=== PATIENT | male | born 1950 | race Caucasian/White ===

== ENCOUNTER 2021-12-18 16:01 | Observation (INO) | payer MEDICARE ==
[2021-12-18] VITALS (8 sets, daily range): BP systolic 114–175; BP diastolic 76–94
[~2021-12-18] VITALS: Ht 172.7 cm; Wt 108.0 kg
[~2021-12-18 16:01] MED LIST: BACTRIM DS1 TAB PO; CARB/LEVO SR PO; CARB/LEVO1 TA3 OR; CARB/LEVO1 TA3 PO; CARB/LEVO1 TA5 PO; CIPROFLOXACN500 MG PO; CLONAZEP ODT1 MG OR; CLONAZEP ODT1 MG PO; CLONAZEPAM0.5 MG PO; CLONAZEPAM1 MG PO; DOXAZOSIN4 MG PO; DOXAZOSIN8 M1 OR; DOXAZOSIN8 M1 PO; ERYTHROMYCIN O3.5 GM OD; GLIPIZIDE ER5 M1 PO; GLUCOPHAGE500 MG PO; HYDROCHLOROT12.5 MG OR; HYDROCHLOROT12.5 MG PO; LISINOP/HCTZ1 TA1; LISINOP/HCTZ1 TA1 OR; LISINOP/HCTZ1 TA1 PO; LISINOP/HCTZ1 TA2 PO; LISINOPRIL10 MG PO; METOPROL TAR25 MG PO; NO MEDS; OMEPRAZOLE20 M1 OR; OMEPRAZOLE20 M1 PO; OMEPRAZOLE20 M2 PO; PLAVIX75 MG PO; ULTRAM50 MG OR; ULTRAM50 MG PO
[2021-12-18 16:46] LABS: HEMATOCRIT 47.5 % (39.0-50.0); HEMOGLOBIN 14.9 g/dl (14.0-18.0); IMMATURE GRANULOCYTES 0.1 % (0.0-5.0); MEAN CELL VOLUME 86.1 fL CALC (80.0-100.0); MEAN CORPUSCULAR HGB CONC 31.4 g/dL CAL (32.0-36.0); NEUT# 6.33 thou/uL (1.82-7.42); RED BLOOD COUNT 5.52 mill/uL (4.70-6.10); RED CELL DISTRI WIDTH 14.9 % (11.5-15.5)
[2021-12-18 16:55] LABS: GFR FOR AFR.AMER. > 60 ML/MIN (>=60 (CALC)); GFR OTHER RACES > 60 ML/MIN (>=60 (CALC))
[2021-12-18 17:07] LABS: ALBUMIN 3.7 g/dL (3.2-5.0); ALKALINE PHOSPHATASE 59 u/l (38-126); ANION GAP 11 (6-22 (CALC)); BILIRUBIN, TOTAL 0.4 mg/dL (0.0-1.4); BUN 12 mg/dL (8-23); BUN/CREATININE RATIO 12 (12-20 (CALC)); CARBON DIOXIDE 26 mmol/l (22-30); CHLORIDE 106 mmol/l (95-108); GFR FOR AFR.AMER. > 60 ML/MIN (>=60 (CALC)); GFR OTHER RACES > 60 ML/MIN (>=60 (CALC)); POTASSIUM 4.1 mmol/l (3.5-5.1); SGOT/AST 24 u/l (19-48); SODIUM 140 mmol/l (137-146); TOTAL PROTEIN 6.8 g/dL (6.3-8.2)
[2021-12-19] VITALS (11 sets, daily range): BP systolic 120–151; BP diastolic 58–80
[2021-12-19 05:54] LABS: HEMATOCRIT 44.8 % (39.0-50.0); HEMOGLOBIN 14.3 g/dl (14.0-18.0); MEAN CELL VOLUME 85.7 fL CALC (80.0-100.0); MEAN CORPUSCULAR HGB 27.3 pG CALC (26.0-32.0); MEAN CORPUSCULAR HGB CONC 31.9 g/dL CAL (32.0-36.0); RED BLOOD COUNT 5.23 mill/uL (4.70-6.10); RED CELL DISTRI WIDTH 14.9 % (11.5-15.5)
[2021-12-19 06:07] LABS: ANION GAP 12 (6-22 (CALC)); BUN 16 mg/dL (8-23); BUN/CREATININE RATIO 15 (12-20 (CALC)); CARBON DIOXIDE 29 mmol/l (22-30); CHLORIDE 102 mmol/l (95-108); CREATININE 1.1 mg/dL (0.7-1.3); GFR FOR AFR.AMER. > 60 ML/MIN (>=60 (CALC)); GFR OTHER RACES > 60 ML/MIN (>=60 (CALC)); SODIUM 139 mmol/l (137-146)
[2021-12-19] MEDS ORDERED: CARVEDILOL25 MG PO (09:45)
[2021-12-19] MEDS ORDERED: FUROSEMIDE20 MG PO (09:45)
[2021-12-19] MEDS ORDERED: POTASSIUM CHLO10 MEQ PO (09:46)
[2021-12-19] MEDS ORDERED: METFORMIN HCL750 MG PO (09:46)
[2021-12-19] MEDS ORDERED: CLOPIDOGREL75 MG PO (09:47)
[2021-12-19] MEDS ORDERED: ATORVASTATIN CA20 MG PO (09:47)
[2021-12-19] MEDS ORDERED: NOVOLIN 70/30 SC ×2 (09:48→10:43)
[2021-12-19] MEDS ORDERED: GLIMEPIRIDE4 MG PO (09:49)
[2021-12-19] MEDS ORDERED: VAZALORE81 MG PO (09:50)
[2021-12-19] MEDS ORDERED: OMEPRAZOLE DR40 MG PO (09:51)
[2021-12-20] VITALS (8 sets, daily range): BP systolic 131–162; BP diastolic 63–94
[2021-12-20 05:01] LABS: HEMATOCRIT 46.3 % (39.0-50.0); HEMOGLOBIN 14.8 g/dl (14.0-18.0); MEAN CELL VOLUME 85.1 fL CALC (80.0-100.0); MEAN CORPUSCULAR HGB 27.2 pG CALC (26.0-32.0); RED BLOOD COUNT 5.44 mill/uL (4.70-6.10); RED CELL DISTRI WIDTH 14.8 % (11.5-15.5)
[2021-12-20 05:24] LABS: ANION GAP 12 (6-22 (CALC)); BUN 25 mg/dL (8-23); BUN/CREATININE RATIO 22 (12-20 (CALC)); CARBON DIOXIDE 28 mmol/l (22-30); CHLORIDE 103 mmol/l (95-108); CREATININE 1.1 mg/dL (0.7-1.3); GFR FOR AFR.AMER. > 60 ML/MIN (>=60 (CALC)); GFR OTHER RACES > 60 ML/MIN (>=60 (CALC)); MAGNESIUM 2.1 mg/dL (1.6-2.3); POTASSIUM 3.9 mmol/l (3.5-5.1); SODIUM 139 mmol/l (137-146)
[2021-12-20 19:43] LABS: URINE BILIRUBIN - DIPSTICK NEGATIVE (NEGATIVE); URINE BLOOD DIPSTICK SMALL (NEGATIVE); URINE COLOR YELLOW; URINE GLUCOSE - DIPSTICK >=1000 mg/dL (NEGATIVE); URINE KETONE NEGATIVE (NEGATIVE); URINE LEUK ESTERASE NEGATIVE (NEGATIVE); URINE PH 5.5 (4.5-8.0); URINE PROTEIN - DIPSTICK 100 mg/dL (NEG-TRACE); URINE UROBILINOGEN - DIPSTICK 0.2 E.U./dL (0.2)
[2021-12-20 19:47] LABS: URINE NITRITE - DIPSTICK NEGATIVE (Negative)
[2021-12-20 20:06] LABS: URINE WBC 0-2 WBC/hpf (0-5)
[2021-12-20 20:07] LABS: URINE HYALINE CAST FEW lpf (NONE-RARE); URINE SQUAMOUS EPITHELIAL CELL FEW EPI/hpf (0-FEW)
[2021-12-21] VITALS: BP 124/63
[2021-12-21 00:06] VITALS: BP 124/63
[2021-12-21 05:17] LABS: HEMATOCRIT 42.3 % (39.0-50.0); HEMOGLOBIN 13.7 g/dl (14.0-18.0); IMMATURE GRANULOCYTES 0.2 % (0.0-5.0); MEAN CELL VOLUME 85.1 fL CALC (80.0-100.0); MEAN CORPUSCULAR HGB 27.6 pG CALC (26.0-32.0); MEAN CORPUSCULAR HGB CONC 32.4 g/dL CAL (32.0-36.0); NEUT# 7.61 thou/uL (1.82-7.42); RED BLOOD COUNT 4.97 mill/uL (4.70-6.10)
[2021-12-21 05:31] LABS: ANION GAP 9 (6-22 (CALC)); BUN 25 mg/dL (8-23); BUN/CREATININE RATIO 23 (12-20 (CALC)); CARBON DIOXIDE 31 mmol/l (22-30); CHLORIDE 102 mmol/l (95-108); CREATININE 1.1 mg/dL (0.7-1.3); GFR FOR AFR.AMER. > 60 ML/MIN (>=60 (CALC)); GFR OTHER RACES > 60 ML/MIN (>=60 (CALC)); MAGNESIUM 2.3 mg/dL (1.6-2.3); POTASSIUM 3.4 mmol/l (3.5-5.1); SODIUM 139 mmol/l (137-146)
[2021-12-21 06:58] VITALS: BP 144/78
[2021-12-21] MEDS ORDERED: POTASSIUM CHLO10 MEQ PO (09:40)
[2021-12-21] MEDS ORDERED: ZITHROMAX Z-PA250 MG PO (09:41)
[2021-12-21] MEDS ORDERED: PREDNISONE20 MG PO (09:42)
[2021-12-21 11:16] VITALS: BP 145/76
== END 2021-12-21 11:55 | disposition home or self-care (01) ==
LOC: ED 16:01 → ED-I 16:39 → ED 18:23 → MS2 18:24
PROVIDERS: Family Medicine; Hospitalist; Internal Medicine; ADMIT Internal Medicine; ATTEND Internal Medicine
DX: I10 Essential (primary) hypertension (principal); I50.9 Heart failure, unspecified; J44.1 Chronic obstructive pulmonary disease with (acute) exacerbation; R09.02 Hypoxemia; I25.10 Atherosclerotic heart disease of native coronary artery without angina pectoris; E87.2 Acidosis; F17.200 Nicotine dependence, unspecified, uncomplicated; Z95.5 Presence of coronary angioplasty implant and graft; Z20.822 Contact with and (suspected) exposure to COVID-19
CPT/HCPCS: J1650; J3475; Q9967